=== PATIENT | male | born 1980 | race American Indian/Alaskan Native ===

== ENCOUNTER 2025-03-25 22:55 | Emergency (ER) | payer OTHER ==
[2025-03-26 00:03] VITALS: BP 167/104; PULSE 115
== END 2025-03-26 02:41 | disposition left against medical advice (07) ==
LOC: MW.ED 22:55
DX: Z53.21 Procedure and treatment not carried out due to patient leaving prior to being seen by health care provider (principal)
CPT/HCPCS: 71046; 71046-26